=== PATIENT | male | born 1950 | race Caucasian/White ===

== ENCOUNTER → 2017-11-25 07:09 | Outpatient (CLI) | payer MEDICARE, OTHER, SELFPAY ==
[2017-11-25 08:45] LABS: Estimated Glomerular Filt Rate > 60.0 mL/min (>60)
== END ==
PROVIDERS: PCP Internal Medicine; Visit Provider Student in an Organized Health Care Education/Training Program
DX: I71.4 Abdominal aortic aneurysm, without rupture (principal); I72.3 Aneurysm of iliac artery
CPT/HCPCS: 36415; 82565

== ENCOUNTER → 2018-01-26 07:56 | Outpatient (CLI) | payer MEDICARE, OTHER, SELFPAY ==
[2018-01-26 08:35] LABS: Add Manual Diff / Slide Review NO; Basophils Percent Auto 0.7 % (0-2); Eosinophils Percent Auto 3.3 % (2-4); Hemoglobin 15.1 g/dL (13.5-17.5); Lymphocytes Percent Auto 27.3 % (25-40); Mean Corpuscular HGB Conc 34.3 % (30-36); Mean Corpuscular Hemoglobin 32.9 PG (26-34); Monocytes Percent Auto 9.2 % (3-14); Neutrophils Absolute Auto 3000 /uL (3000-5900); Neutrophils Percent Auto 59.5 % (50-75); Platelet Count 185 X10^3/uL (150-400); Red Blood Cell Count 4.59 X10^6/uL (4.5-5.9); Red Cell Distribution Width 13.7 % (11.6-14.8); White Blood Cell Count 5.1 X10^3/uL (4.5-11.0)
[2018-01-26 08:57] LABS: Alanine Aminotransferase 31 IU/L (21-72); Albumin 4.1 g/dL (3.5-5.0); Albumin Globulin Ratio 1.4 (1.0-2.8); Alkaline Phosphatase 75 U/L (38-126); Aspartate Aminotransferase 31 IU/L (17-59); Blood Urea Nitrogen 21 mg/dL (9-20); Carbon Dioxide 31 mmol/L (22-32); Chloride 106 mmol/L (98-107); Cholesterol 177 mg/dL (140-199); Estimated Glomerular Filt Rate > 60.0 mL/min (>60); Globulin 2.9 g/dL (1.7-4.1); Glucose 94 mg/dL (80-110); HDL Cholesterol 46 mg/dL (40-60); HEMOLYSIS < 15 (0-50); LDL Cholesterol Calculated 115 mg/dL (<100); Potassium 4.6 mmol/L (3.4-5.1); Sodium 143 mmol/L (137-145); Triglycerides 82 mg/dL (35-150)
== END ==
PROVIDERS: PCP Internal Medicine; Visit Provider Internal Medicine
DX: Z12.5 Encounter for screening for malignant neoplasm of prostate (principal); E78.00 Pure hypercholesterolemia, unspecified
CPT/HCPCS: 36415; 80053; 80061; 84153; 85025

== ENCOUNTER → 2018-03-27 07:43 | Outpatient (CLI) | payer MEDICARE, OTHER, SELFPAY ==
[2018-03-27 08:38] LABS: Alanine Aminotransferase 28 IU/L (21-72); Aspartate Aminotransferase 29 IU/L (17-59); Cholesterol 136 mg/dL (140-199); HDL Cholesterol 42 mg/dL (40-60); LDL Cholesterol Calculated 82 mg/dL (<100); Triglycerides 59 mg/dL (35-150)
[2018-03-27 09:30] LABS: Hep C Virus Ab w/Reflex Quant NEGATIVE s/c (NEGATIVE)
== END ==
PROVIDERS: PCP Internal Medicine; Visit Provider Internal Medicine
DX: E78.00 Pure hypercholesterolemia, unspecified (principal)
CPT/HCPCS: 36415; 80061; 84450; 84460; 86803

== ENCOUNTER → 2019-03-13 07:57 | Outpatient (CLI) | payer MEDICARE, OTHER, SELFPAY ==
[2019-03-13 09:10] LABS: Alanine Aminotransferase 21 IU/L (<50); Albumin Globulin Ratio 1.4 (1.0-2.8); Alkaline Phosphatase 85 U/L (38-126); Aspartate Aminotransferase 32 IU/L (17-59); Bilirubin Total 1.4 mg/dL (0.2-1.3); Blood Urea Nitrogen 16 mg/dL (9-20); Calcium 9.1 mg/dL (8.4-10.2); Carbon Dioxide 28 mmol/L (22-32); Chloride 106 mmol/L (98-107); Cholesterol 150 mg/dL (140-199); Estimated Glomerular Filt Rate > 60.0 mL/min (>60); Globulin 2.8 g/dL (1.7-4.1); Glucose 99 mg/dL (80-110); HDL Cholesterol 40 mg/dL (40-60); HEMOLYSIS < 15 (0-50); LDL Cholesterol Calculated 97 mg/dL (<100); Potassium 4.6 mmol/L (3.4-5.1); Sodium 140 mmol/L (137-145); Total Protein 6.8 g/dL (6.3-8.2); Triglycerides 66 mg/dL (35-150)
[2019-03-13 09:38] LABS: Prostate Specific Antigen Scrn 1.55 ng/mL (0.1-4.0)
== END ==
PROVIDERS: PCP Internal Medicine; Visit Provider Internal Medicine
DX: Z00.00 Encounter for general adult medical examination without abnormal findings (principal); M15.0 Primary generalized (osteo)arthritis; E78.00 Pure hypercholesterolemia, unspecified; Z12.5 Encounter for screening for malignant neoplasm of prostate
CPT/HCPCS: 36415; 80053; 80061; G0103

== ENCOUNTER → 2019-09-27 07:36 | Outpatient (CLI) | payer MEDICARE, OTHER, SELFPAY ==
[2019-09-27 08:54] LABS: Estimated Glomerular Filt Rate > 60.0 mL/min (>60)
== END ==
PROVIDERS: PCP Internal Medicine; Referring Provider Physician Assistant; Visit Provider Physician Assistant
DX: I72.3 Aneurysm of iliac artery (principal); I71.4 Abdominal aortic aneurysm, without rupture
CPT/HCPCS: 36415; 82565

== ENCOUNTER → 2020-03-18 07:43 | Outpatient (CLI) | payer MEDICARE, OTHER, SELFPAY ==
[2020-03-18 08:54] LABS: Add Manual Diff / Slide Review NO; Basophils Absolute Auto 0 /uL (0-100); Basophils Percent Auto 0.7 % (0-2); Eosinophils Absolute Auto 100 /uL (0-450); Eosinophils Percent Auto 2.8 % (2-4); Hematocrit 42.5 % (41-53); Hemoglobin 14.4 g/dL (13.5-17.5); Lymphocytes Absolute Auto 1200 /uL (1100-4500); Lymphocytes Percent Auto 27.5 % (25-40); Mean Corpuscular HGB Conc 33.9 % (30-36); Mean Corpuscular Volume 97.3 fL (80-100); Monocytes Absolute Auto 400 /uL (0-900); Monocytes Percent Auto 9.1 % (3-14); Neutrophils Absolute Auto 2600 /uL (1500-7000); Neutrophils Percent Auto 59.9 % (50-75); Platelet Count 185 X10^3/uL (150-400); Red Blood Cell Count 4.37 X10^6/uL (4.5-5.9); Red Cell Distribution Width 13.5 % (11.6-14.8); White Blood Cell Count 4.4 X10^3/uL (4.5-11.0)
[2020-03-18 09:27] LABS: Alanine Aminotransferase 25 IU/L (<50); Albumin Globulin Ratio 1.4 (1.0-2.8); Alkaline Phosphatase 70 U/L (38-126); Aspartate Aminotransferase 34 IU/L (17-59); BUN Creatinine Ratio 14.6 (6-22); Bilirubin Total 0.8 mg/dL (0.2-1.3); Blood Urea Nitrogen 14 mg/dL (9-20); Calcium 9.1 mg/dL (8.4-10.2); Carbon Dioxide 31 mmol/L (22-32); Chloride 106 mmol/L (98-107); Cholesterol 164 mg/dL (140-199); Estimated Glomerular Filt Rate > 60.0 mL/min (>60); Globulin 2.8 g/dL (1.7-4.1); Glucose 96 mg/dL (80-110); HDL Cholesterol 47 mg/dL (40-60); HEMOLYSIS < 15 (0-50); LDL Cholesterol Calculated 101 mg/dL (<100); Potassium 4.5 mmol/L (3.4-5.1); Sodium 140 mmol/L (137-145); Total Protein 6.8 g/dL (6.3-8.2); Triglycerides 79 mg/dL (35-150)
[2020-03-18 09:51] LABS: Prostate Specific Antigen Scrn 1.83 ng/mL (0.1-4.0)
== END ==
PROVIDERS: PCP Internal Medicine; Referring Provider Internal Medicine; Visit Provider Internal Medicine
DX: Z00.00 Encounter for general adult medical examination without abnormal findings (principal); E78.00 Pure hypercholesterolemia, unspecified; Z12.5 Encounter for screening for malignant neoplasm of prostate; I71.4 Abdominal aortic aneurysm, without rupture
CPT/HCPCS: 36415; 80053; 80061; 85025; G0103

== ENCOUNTER → 2020-05-15 14:27 | Outpatient (CLI) | payer MEDICARE, OTHER, SELFPAY ==
[2020-05-15] MEDS: COVID-19 VACC #1, MRNA(MOD) 100 MCG/0.5 ML VIAL IM (14:32)
== END ==
PROVIDERS: PCP Internal Medicine; Visit Provider Internal Medicine
DX: Z23 Encounter for immunization (principal)
CPT/HCPCS: 0011A; 91301

== ENCOUNTER → 2020-06-12 14:28 | Outpatient (CLI) | payer MEDICARE, OTHER, SELFPAY ==
[2020-06-12] MEDS: COVID-19 VACC #2, MRNA(MOD) 100 MCG/0.5 ML VIAL IM (14:36)
== END ==
PROVIDERS: PCP Internal Medicine; Visit Provider Internal Medicine
DX: Z23 Encounter for immunization (principal)
CPT/HCPCS: 0012A; 91301

== ENCOUNTER → 2021-11-14 08:16 | Outpatient (CLI) | payer MEDICARE, OTHER, SELFPAY ==
[2021-11-14 09:30] LABS: BUN Creatinine Ratio 15.2 (6-22); Blood Urea Nitrogen 17 mg/dL (9-20); Carbon Dioxide 28 mmol/L (22-32); Chloride 107 mmol/L (98-107); Estimated Glomerular Filt Rate > 60 mL/min (>60); Glucose 92 mg/dL (80-110); HEMOLYSIS < 15 (0-50); Potassium 4.5 mmol/L (3.4-5.1); Sodium 140 mmol/L (137-145)
== END ==
PROVIDERS: PCP Internal Medicine; Visit Provider Student in an Organized Health Care Education/Training Program
DX: I83.11 Varicose veins of right lower extremity with inflammation (principal); I71.4 Abdominal aortic aneurysm, without rupture
CPT/HCPCS: 36415; 80048

== ENCOUNTER → 2022-05-07 11:04 | Outpatient (CLI) | payer MEDICARE, OTHER, SELFPAY ==
[2022-05-07 12:47] LABS: Hematocrit 43.6 % (41-53); Hemoglobin 14.7 g/dL (13.5-17.5); Mean Corpuscular HGB Conc 33.8 % (30-36); Mean Corpuscular Hemoglobin 32.6 PG (26-34); Mean Corpuscular Volume 96.6 fL (80-100); Platelet Count 162 X10^3/uL (150-400); Red Blood Cell Count 4.51 X10^6/uL (4.5-5.9); Red Cell Distribution Width 13.5 % (11.6-14.8)
[2022-05-07 13:34] LABS: Alanine Aminotransferase 22 IU/L (<50); Alkaline Phosphatase 78 U/L (38-126); Aspartate Aminotransferase 30 IU/L (17-59); BUN Creatinine Ratio 19.8 (6-22); Bilirubin Total 1.4 mg/dL (0.2-1.3); Blood Urea Nitrogen 18 mg/dL (9-20); Calcium 8.9 mg/dL (8.4-10.2); Carbon Dioxide 26 mmol/L (22-32); Chloride 104 mmol/L (98-107); Cholesterol 172 mg/dL (140-199); Estimated Glomerular Filt Rate > 60 mL/min (>60); Glucose 86 mg/dL (80-110); HDL Cholesterol 49 mg/dL (40-60); HEMOLYSIS < 15 (0-50); LDL Cholesterol Calculated 108 mg/dL (<100); Potassium 4.2 mmol/L (3.4-5.1); Sodium 140 mmol/L (137-145); Total Protein 7.2 g/dL (6.3-8.2); Triglycerides 75 mg/dL (35-150)
[2022-05-07 13:59] LABS: Prostate Specific Antigen 2.75 ng/mL (0.10-4.00)
[2022-05-07 14:02] LABS: TSH w/ Reflex to FT4 1.41 uIU/mL (0.47-4.68)
[2022-05-07 19:40] LABS: Albumin 4.2 g/dL (3.5-5.0); Albumin Globulin Ratio 1.4 (1.0-2.8)
== END ==
PROVIDERS: PCP Internal Medicine; Referring Provider Internal Medicine; Visit Provider Internal Medicine
DX: E78.2 Mixed hyperlipidemia (principal); N40.1 Benign prostatic hyperplasia with lower urinary tract symptoms; I25.10 Atherosclerotic heart disease of native coronary artery without angina pectoris; K59.01 Slow transit constipation; N13.8 Other obstructive and reflux uropathy
CPT/HCPCS: 36415; 80053; 80061; 84153; 84443; 85027

== ENCOUNTER → 2022-11-24 09:19 | Outpatient (CLI) | payer MEDICARE, OTHER, SELFPAY ==
[2022-11-24 11:12] LABS: Aspartate Aminotransferase 36 IU/L (17-59); Blood Urea Nitrogen 20 mg/dL (9-20); Calcium 8.9 mg/dL (8.4-10.2); Carbon Dioxide 29 mmol/L (22-32); Chloride 104 mmol/L (98-107); Cholesterol 134 mg/dL (140-199); Estimated Glomerular Filt Rate > 60 mL/min (>60); Glucose 93 mg/dL (80-110); HDL Cholesterol 48 mg/dL (40-60); HEMOLYSIS < 15 (0-50); LDL Cholesterol Calculated 70 mg/dL (<100); Potassium 4.3 mmol/L (3.4-5.1); Sodium 140 mmol/L (137-145); Triglycerides 80 mg/dL (35-150)
== END ==
PROVIDERS: PCP Internal Medicine; Referring Provider Internal Medicine; Visit Provider Internal Medicine
DX: E78.2 Mixed hyperlipidemia (principal); I25.10 Atherosclerotic heart disease of native coronary artery without angina pectoris
CPT/HCPCS: 36415; 80048; 80061; 84450

== ENCOUNTER 2022-12-19 06:32 | Emergency (ER) | payer MEDICARE, OTHER, SELFPAY ==
[2022-12-19 06:45] VITALS: BP 145/69; PULSE 72; RESP 18; TEMP 36.8; O2SAT 97; BMI 23.7
--- NOTE | 2022-12-19 07:09 | ED_ITS ---
HPI - Extremity Problem General Chief complaint: Extremity Problem,Nontraumatic Stated complaint: lt thumb injury since Tuesday Time Seen by Provider: 12/19/22 06:55 Source: patient Mode of arrival: Ambulatory History of Present Illness HPI Narrative: 72-year-old male presents for evaluation of left thumb pain and swelling. Patient states that he was gardening when he got a splinter under his nail. He removed the splinter, however over the weekend it has gradually worsened and begun to swell. He has been using warm saltwater soaks without improvement. Pain is worst over the pulp of his thumb. He states that he got a tetanus upda te earlier this year. Related Data Previous Rx's Medication Instructions Recorded rosuvastatin 20 mg tablet 20 mg PO DAILY #90 tabs 05/07/22 valacyclovir 500 mg tablet 500 mg PO BID #14 tabs 11/24/22 doxycycline hyclate 100 mg capsule 100 mg PO BID #14 caps 12/19/22 Allergies Allergy/AdvReac Type Severity Reaction Status Date / Time erythromycin base AdvReac disoriented Verified 11/24/22 08:25 Review of Systems Review of Systems Narrative: CONSTITUTIONAL- Denies: fever, chills, fatigue HEENT- Denies: sore throat, nosebleed, vision changes RESPIRATORY- Denies: shortness of breath, cough, wheezing CARDIAC- Denies: chest pain, edema, orthopnea GI- Denies: abdominal pain, nausea, vomiting, constipation, diarrhea - Denies: frequency, dysuria, hematuria, flank pain MSK-reports: Left thumb pain, left thumb swelling Denies: Joint pain, joint swelling SKIN-reports: Swelling, redness Denies: rash, itching, burn NEUROLOGICAL- Denies: headache, numbness, weakness, dizziness PSYCHIATRIC- Denies: anxiety, depression, suicidal ideation, homicidal ideation Patient History Medical History (Updated 12/19/22 @ 07:11 by Oriana Jacobson MD) Allergic rhinitis Atherosclerotic coronary vascular disease BPH w urinary obs/LUTS Chicken pox Colon polyps (~2018) Cutaneous leishmaniasis Herpes History of colon polyps HSV (herpes simplex virus) anogenital infection Knee pain, left (~2020) Macular edema of left eye (~2015) Measles Mixed hyperlipidemia Mumps Plantar warts Primary osteoarthritis involving multiple joints Slow transit constipation Surgical History Anesthesia History of AAA (abdominal aortic aneurysm) repair (~2018) History of hip replacement (~2006) History of inguinal hernia repair, bilateral (~2008) History of tonsillectomy (~1954) Family History Father Cancer Cholangiocarcinoma Mother Cancer History of heart disease Brother Prostate cancer Social History details: (Yvette Espinal), 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 Smoking Status: Former smoker Exam Initial Vital Signs Initial Vital Signs: Vital Signs Temperature 98.3 F 12/19/22 06:45 Pulse Rate 72 12/19/22 06:45 Respiratory Rate 18 12/19/22 06:45 Blood Pressure 145/69 H 12/19/22 06:45 Pulse Oximetry 97 12/19/22 06:45 Oxygen Delivery Method Room Air 12/19/22 06:45 Const: Well-nourished, Well-developed, appears stated age Eyes: PERRL, EOMI, conjunctiva normal ENT: Atraumatic, dentition normal, mucous membranes moist Cardiac: regular rate, regular rhythm RESP: unlabored, clear bilaterally, no wheezing GI: Atraumatic, soft, nontender, nondistended, no rebound, no guarding MSK: Atraumatic, full range of motion, pulses equal, no flexor tendon sheath tenderness Skin: Warm, Dry, intact, mild erythema and swelling of the pulp of left thumb. Neuro: AO x3, CN II-XII grossly intact, moves all extremities Psych: affect normal, mood normal, not suicidal, not homicidal Course Course Course Narrative: Well-appearing patient with thumb swelling after getting a splinter under his nail bed. There is no foreign body seen underneath the nailbed. He is full range of motion of his thumb, no evidence for flexor tenosynovitis at this time. Patient's pain is most at the pulp of the thumb, however there is no discernible abscess to drain. Take [id number] pain medications as needed. We will give antibiotics for presumed infection. Patient is up-to-date with his tetanus shot. ED return precautions discussed at bedside. Patient expressed understanding of the plan and is in agreement at this time. All questions answered at the time of discharge. Vital Signs Vital signs: Vital Signs - 8 hr 12/19/22 06:45 Temperature 98.3 F Pulse Rate 72 Respiratory Rate 18 Blood Pressure 145/69 H Pulse Oximetry 97 Oxygen Delivery Method Room Air Discharge Plan Departure Patient Disposition: Home Clinical Impression: Cellulitis Instructions: DI for Cellulitis -- Adult Prescriptions: New doxycycline hyclate 100 mg capsule 100 mg PO BID Qty: 14 0RF No Action rosuvastatin 20 mg tablet 20 mg PO DAILY Qty: 90 3RF valacyclovir 500 mg tablet 500 mg PO BID Qty: 14 5RF Referrals: Gray Richards MD [Primary Care Provider] - Stand Alone Forms: Patient Portal/API
== END 2022-12-19 07:20 | disposition home or self-care (01) ==
PROVIDERS: Emergency Provider Emergency Medicine; PCP Internal Medicine
DX: L03.012 Cellulitis of left finger (principal)
CPT/HCPCS: 99281

== ENCOUNTER → 2023-01-03 15:00 | Outpatient (CLI) | payer MEDICARE, OTHER, SELFPAY ==
--- NOTE | 2023-01-03 15:01 | DI.RAD.S_ITS ---
PROCEDURE: XR FINGER LT MIN 2V INDICATIONS: thumb pain TECHNIQUE: AP hand, 2 views of the 1st finger(s) acquired. COMPARISON: None. FINDINGS: Bones: No fractures or dislocations. No suspicious bony lesions. Mild 1st CMC arthritic narrowing. Minimal to mild scattered IP narrowing. No distinct erosions. Soft tissues: No suspicious soft tissue calcifications. IMPRESSION: Overall minimal to mild arthritic changes above. Dictated by: Gisselle Fabian M.D. on 01/03/2023 at 17:24 Approved by: Gisselle Fabian M.D. on 01/03/2023 at 17:24
== END ==
PROVIDERS: PCP Internal Medicine; Referring Provider Internal Medicine; Visit Provider Internal Medicine
DX: L03.90 Cellulitis, unspecified (principal)
CPT/HCPCS: 73140

== ENCOUNTER → 2023-05-10 10:37 | Outpatient (CLI) | payer MEDICARE, OTHER, SELFPAY ==
--- NOTE | 2023-05-10 10:39 | DI.RAD.S_ITS ---
PROCEDURE: XR HIP W PEL IF DONE LT 2V INDICATIONS: left hip pain TECHNIQUE: 2 views of the hip were acquired. COMPARISON: None. FINDINGS: Bones: No fractures or dislocations. No suspicious bony lesions. The visualized pelvic ring appears intact. Well-aligned, intact right total hip arthroplasty without hardware complication. Joint space narrowing with osteophytosis and subchondral cystic change of the left hip. Soft tissues: No suspicious soft tissue calcifications or masses. Vascular stents. Hernia mesh along the pelvic ring. IMPRESSION: Moderate to severe left hip osteoarthritis. Kellgren-Jose Luis Grade 3. No acute bony abnormality. Dictated by: Guzman Owens M.D. on 05/10/2023 at 13:09 Approved by: Guzman Owens M.D. on 05/10/2023 at 13:10
[2023-05-10 11:56] LABS: Aspartate Aminotransferase 37 IU/L (17-59); BUN Creatinine Ratio 20.2 (6-22); Blood Urea Nitrogen 17 mg/dL (9-20); Carbon Dioxide 27 mmol/L (22-32); Chloride 105 mmol/L (98-107); Cholesterol 139 mg/dL (140-199); Estimated Glomerular Filt Rate > 60 mL/min (>60); Glucose 94 mg/dL (80-110); HDL Cholesterol 44 mg/dL (40-60); HEMOLYSIS < 15 (0-50); LDL Cholesterol Calculated 80 mg/dL (<100); Potassium 4.1 mmol/L (3.4-5.1); Sodium 139 mmol/L (137-145); Triglycerides 75 mg/dL (35-150)
[2023-05-10 12:22] LABS: Prostate Specific Antigen 4.07 ng/mL (0.10-4.00)
== END ==
PROVIDERS: PCP Internal Medicine; Referring Provider Internal Medicine; Visit Provider Internal Medicine
DX: E78.2 Mixed hyperlipidemia (principal); N40.1 Benign prostatic hyperplasia with lower urinary tract symptoms; M16.12 Unilateral primary osteoarthritis, left hip; N13.8 Other obstructive and reflux uropathy
CPT/HCPCS: 36415; 73502; 80048; 80061; 84153; 84450

== ENCOUNTER 2023-07-11 07:42 | Day surgery (SDC) | payer MEDICARE, OTHER, SELFPAY ==
[2023-07-11 07:58] VITALS: BP 119/74; PULSE 67; RESP 16; TEMP 36.4; O2SAT 100
[2023-07-11] MEDS: LACTATED RINGERS 1,000 ML 42 ML IV (08:04)
--- NOTE | 2023-07-11 08:56 | PM.HP.1 ---
History of Present Illness History of Present Illness Date Patient Seen: 07/11/23 Time Patient Seen: 08:56 Chief complaint: Colonoscopy Narrative: Oj is a 72 year old man here for a colonoscopy. His last one was [address] Baca at [facility] and polyps were removed. No family history of colon cancer. [facility] Medical History (Updated 05/12/23 @ 13:30 by Gray Richards MD) Elevated PSA HSV (herpes simplex virus) anogenital infection Primary osteoarthritis involving multiple joints BPH w urinary obs/LUTS Atherosclerotic coronary vascular disease Cutaneous leishmaniasis Plantar warts Knee pain, left (~2020) Mumps Measles Herpes Chicken pox Macular edema of left eye (~2015) Allergic rhinitis History of colon polyps Mixed hyperlipidemia Surgical History Anesthesia History of tonsillectomy (~1953) History of inguinal hernia repair, bilateral (~2008) History of hip replacement (~2006) History of AAA (abdominal aortic aneurysm) repair (~2017) Family History Father Cancer Cholangiocarcinoma Mother Cancer History of heart disease Brother Prostate cancer Social History details: (Yvette Espinla), 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 alcohol intake: current Meds Home Medications and Allergies Home Medications Medication Instructions Recorded Confirmed Type rosuvastatin 20 mg tablet 20 mg PO DAILY #90 tabs 05/10/23 07/11/23 Rx Allergies Allergy/AdvReac Type Severity Reaction Status Date / Time erythromycin base AdvReac disoriented Verified 05/10/23 07:34 Exam Vital Signs (past 8 hours): - 07/11/23 07:58 Temperature 97.6 F Pulse Rate 67 Respiratory Rate 16 Blood Pressure 119/74 Pulse Oximetry 100 Oxygen Delivery Method Room Air Oxygen Delivery Method Room Air Const General: healthy appearing Assessment & Plan Assessment and plan (1) History of colon polyps: Status: Acute Plan We reviewed the risks and benefits of colonoscopy for history of polyps and he would like to proceed.
[2023-07-11 09:36] VITALS: BP 94/57; PULSE 70; RESP 16; TEMP 36.7; O2SAT 97
--- NOTE | 2023-07-11 09:37 | PM.OP.COLON ---
Operative Date/Time/Diagnoses Date of procedure: 07/11/23 Time of procedure: 09:37 Pre-op diagnosis: History of polyps Post-op diagnosis: same Procedure & Clinicians Study performed: Colonoscopy Same procedure as scheduled: Yes Surgeon: Charlie Heath Procedure Notes Procedure in detail: Surgeon: Charlie Heath MD Anesthesia: Nuris Bourgeois CRNA Procedure: The patient was brought to the endoscopy suite, placed in left lateral decubitus position. The patient was connected to monitoring devices. A time-out was performed. Sedation was administered. Once the patient was adequately sedated, a digital rectal exam was performed and was normal. The scope was then inserted and advanced to the cecum where the appendiceal orifice was identified and photographed. The scope was then slowly withdrawn over greater than 6 minutes. The mucosa was thoroughly inspected. The prep was fair but after copious irrigation was able to be cleared. No polyps were found. The scope was retroflexed in the rectum. Mild internal hemorrhoids were noted. The scope was straightened and removed. The patient was awakened and brought to recovery. Scope withdrawal time: 23 minutes Sedation time: 30 minutes EBL: 0 Findings: Internal hemorrhoids Post-procedure Disposition: PACU
[2023-07-11 09:40] VITALS: BP 88/58; PULSE 68; RESP 16; O2SAT 97
[2023-07-11 09:45] VITALS: BP 98/61; PULSE 64; RESP 13; O2SAT 97
[2023-07-11 09:46] VITALS: BP 100/66; PULSE 66; RESP 14; O2SAT 97
[2023-07-11 10:01] VITALS: BP 107/62; PULSE 52; RESP 18; TEMP 36.9; O2SAT 96
== END 2023-07-11 10:07 | disposition home or self-care (01) ==
PROVIDERS: Surgery; PCP Internal Medicine; Referring Provider Internal Medicine Gastroenterology; Visit Provider Internal Medicine Gastroenterology
PROC: 0DJD8ZZ Inspection of Lower Intestinal Tract, Via Natural or Artificial Opening Endoscopic (ICD-10-PCS; CPT 45378; principal; 2023-07-11 08:30)
DX: Z12.11 Encounter for screening for malignant neoplasm of colon (principal); Z86.010 Personal history of colon polyps; K64.8 Other hemorrhoids
CPT/HCPCS: G0105; J2704

== ENCOUNTER → 2023-08-03 06:53 | Outpatient (CLI) | payer MEDICARE, OTHER, SELFPAY ==
[2023-08-05 09:56] LABS: PSA Free % 14.1 % (.); PSA, Total 3.2 ng/mL (0.0-4.0)
== END ==
PROVIDERS: PCP Internal Medicine; Referring Provider Internal Medicine; Visit Provider Internal Medicine
DX: R97.20 Elevated prostate specific antigen [PSA] (principal)
CPT/HCPCS: 36415; 84153; 84154

== ENCOUNTER → 2024-05-15 10:55 | Outpatient (CLI) | payer MEDICARE, OTHER, SELFPAY ==
[2024-05-15 11:57] LABS: Aspartate Aminotransferase 33 IU/L (17-59); BUN Creatinine Ratio 16.7 (6-22); Blood Urea Nitrogen 15 mg/dL (9-20); Calcium 9.2 mg/dL (8.4-10.2); Carbon Dioxide 27 mmol/L (22-32); Chloride 106 mmol/L (98-107); Cholesterol 139 mg/dL (140-199); Estimated Glomerular Filt Rate > 60 mL/min (>60); Glucose 89 mg/dL (80-110); HDL Cholesterol 47 mg/dL (40-60); HEMOLYSIS < 15 (0-50); LDL Cholesterol Calculated 73 mg/dL (<100); Potassium 4.1 mmol/L (3.4-5.1); Sodium 139 mmol/L (137-145); Triglycerides 96 mg/dL (35-150)
[2024-05-15 12:27] LABS: Prostate Specific Antigen 4.99 ng/mL (0.10-4.00)
== END ==
PROVIDERS: PCP Internal Medicine; Referring Provider Internal Medicine; Visit Provider Internal Medicine
DX: E78.2 Mixed hyperlipidemia (principal); N40.1 Benign prostatic hyperplasia with lower urinary tract symptoms; N13.8 Other obstructive and reflux uropathy; I25.10 Atherosclerotic heart disease of native coronary artery without angina pectoris
CPT/HCPCS: 36415; 80048; 80061; 84153; 84450

== ENCOUNTER 2024-07-31 14:55 | Emergency (ER) | payer MEDICARE, OTHER, SELFPAY ==
[2024-07-31 15:15] VITALS: BP 119/58; PULSE 69; RESP 15; O2SAT 95; BMI 23.7
[2024-07-31 17:10] VITALS: BP 115/61; PULSE 67; RESP 14; O2SAT 97
--- NOTE | 2024-07-31 18:55 | ED.UPPEXIN ---
HPI - Extremity Injury (Upper) <Nicholas Jeffrey PA-C - Last Filed: 07/31/24 19:00> General Chief Complaint: Extremity Injury, Upper Stated Complaint: thumb laceration Time Seen by Provider: 07/31/24 15:37 Source: patient Mode of arrival: Ambulatory History of Present Illness HPI narrative: 74-year-old male presents to the ED with a left thumb laceration sustained just prior to arrival. Patient was using a branch cutter, accidentally injuring his left thumb. Patient endorses pain at the site of the wound, denies numbness, tingling, weakness. Is able to move all extremities normally. Tetanus is up-to-date. Related Data Previous Rx's Medication Instructions Recorded rosuvastatin 20 mg tablet 20 mg PO DAILY #90 tabs 05/15/24 valacyclovir 500 mg tablet 500 mg PO BID #14 tabs 05/15/24 Allergies Allergy/AdvReac Type Severity Reaction Status Date / Time erythromycin base AdvReac disoriented Verified 05/15/24 09:59 Review of Systems <Nicholas Jeffrey PA-C - Last Filed: 07/31/24 19:00> Constitutional Constitutional: Denies chills, Denies fatigue, Denies fever(s), Denies frequent falls, Denies lethargy and Denies weakness Eyes Eyes: Denies change in vision, Denies eye discharge, Denies irritation and Denies loss of vision ENT Ears, Nose, Mouth, and Throat: Denies change in voice, Denies dizziness, Denies neck pain, Denies sore throat and Denies throat swelling Cardiovascular Cardiovascular: Denies chest pain, Denies irregular heart rhythm, Denies lightheadedness, Denies palpitations, Denies dyspnea, Denies dyspnea on exertion and Denies orthopnea Respiratory Respiratory: Denies cough, Denies dyspnea, Denies dyspnea on exertion and Denies wheezing Gastrointestinal Gastrointestinal: Denies abdominal pain, Denies change in bowel habits, Denies diarrhea, Denies nausea and Denies vomiting Musculoskeletal Musculoskeletal: Denies neck pain and Denies numbness Integumentary/Breasts Skin/Breast: Denies pruritus, Denies erythema, Denies rash and Reports wounds Neurologic Neurologic: Denies behavioral changes, Denies confusion, Denies dizziness, Denies frequent falls, Denies loss of vision, Denies numbness and Denies weakness Psychiatric Psychiatric: Denies anxiety, Denies behavioral changes, Denies confusion, Denies depression, Denies homicidal ideation and Denies suicidal ideation Endocrine Endocrine: Denies fatigue, Denies flushing and Denies palpitations Hematologic/Lymphatic Hematologic/Lymphatic: Denies easy bruising Allergic/Immunologic Allergic/Immunologic: Denies urticaria, Denies throat swelling and Denies wheezing Patient History <Nicholas Jeffrey PA-C - Last Filed: 07/31/24 19:00> Medical History Chronic low back pain Elevated PSA HSV (herpes simplex virus) anogenital infection Primary osteoarthritis involving multiple joints BPH w urinary obs/LUTS Atherosclerotic coronary vascular disease Cutaneous leishmaniasis Plantar warts Knee pain, left (~2020) Mumps Measles Herpes Chicken pox Macular edema of left eye (~2015) Allergic rhinitis History of colon polyps Mixed hyperlipidemia Surgical History Anesthesia History of tonsillectomy (~1953) History of inguinal hernia repair, bilateral (~2008) History of hip replacement (~2006) History of AAA (abdominal aortic aneurysm) repair (~2017) Family History Father Cancer Cholangiocarcinoma Mother Cancer History of heart disease Brother Prostate cancer Social History details: (Yvette Espinal), 1 daughter, 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 alcohol intake: current Smoking Status: Former smoker alcohol intake frequency: 0-2 drinks per day Alcohol type: wine Exam <Nicholas Jeffrey PA-C - Last Filed: 07/31/24 19:00> Narrative Exam Narrative: Const General:?cooperative, healthy appearing and comfortable [facility] Head:?normal to inspection Ears:?hearing grossly normal bilaterally Nose:?external nose normal Face and sinus:?normal facial exam and sinuses nontender Mouth:?oral mucosae normal Throat:?posterior oropharynx normal Eyes General:?appearance normal, both eyes and all related structures Neck Neck:?normal visual inspection and no lymphadenopathy noted Resp Effort & Inspection:?normal respiratory effort Auscultation:?clear to auscultation bilaterally Cardio Rate:?regular rate Rhythm:?regular rhythm Integumentary There is a 1.5 cm linear laceration to the dorsal aspect of the left wrist. There is full range of motion. Strength and sensation is intact. Patient is neurovascularly intact. Bleeding is controlled with pressure. No internal structures visualized on exam. Neuro General:?patient alert, patient awake and patient oriented x3 Initial Vital Signs Initial Vital Signs: Vital Signs Pulse Rate 69 07/31/24 15:15 Respiratory Rate 15 07/31/24 15:15 Blood Pressure 119/58 L 07/31/24 15:15 Pulse Oximetry 95 07/31/24 15:15 Oxygen Delivery Method Room Air 07/31/24 15:15 <DO Kev Hinojosa Last Filed: 07/31/24 19:13> Initial Vital Signs Initial Vital Signs: Vital Signs Pulse Rate 69 07/31/24 15:15 Respiratory Rate 15 07/31/24 15:15 Blood Pressure 119/58 L 07/31/24 15:15 Pulse Oximetry 95 07/31/24 15:15 Oxygen Delivery Method Room Air 07/31/24 15:15 Procedures <MERNA Gaitan Last Filed: 07/31/24 19:00> Laceration Repair Laceration 1: Site: hand Side (If applicable): left Size (cm): 1.5 Description: linear Depth: simple, single layer Local Anesthetic: lidocaine 1% Amount of anesthesia used (mL): 1 Pre-repair: wound explored, irrigated extensively and deep structures intact Skin layer closed with: nylon Skin layer suture size: 5-0 Number of sutures: 3 Course <MERNA Gaitan Last Filed: 07/31/24 19:00> Orders Ordered: Discontinued Medications Bacitracin (Bacitracin Oint 0.9 Gm Pckt) 1 applic TOP NOW ONE Stop: 07/31/24 16:56 Vital Signs Vital signs: Vital Signs - 8 hr 07/31/24 15:15 07/31/24 17:10 Pulse Rate 69 67 Respiratory Rate 15 14 Blood Pressure 119/58 L 115/61 Pulse Oximetry 95 97 Oxygen Delivery Method Room Air Room Air <DO Kev Hinojosa Last Filed: 07/31/24 19:13> Orders Ordered: Discontinued Medications Bacitracin (Bacitracin Oint 0.9 Gm Pckt) 1 applic TOP NOW ONE Stop: 07/31/24 16:56 Vital Signs Vital signs: Vital Signs - 8 hr 07/31/24 15:15 07/31/24 17:10 Pulse Rate 69 67 Respiratory Rate 15 14 Blood Pressure 119/58 L 115/61 Pulse Oximetry 95 97 Oxygen Delivery Method Room Air Room Air MDM - Extremity Injury (Upper) <Nicholas Jeffrey PA-C - Last Filed: 07/31/24 19:00> MDM Narrative Medical decision making narrative: 74-year-old male presents to the ED with a left thumb laceration sustained just prior to arrival. Laceration was repaired with 3 sutures. Wound care, signs of infection, suture removal discussed with patient. ED return precautions discussed with patient. Patient verbalized understanding. Medical records reviewed: Yes Discharge Plan Departure Patient Disposition: Home Clinical Impression: Laceration Instructions: DI for Laceration Repair Activity Restrictions/Additional Instructions: You were evaluated in the emergency department for a thumb injury. Your laceration was repaired with 3 sutures. The sutures will need to be removed in 7-10 days. You may return to the ED, go to a walk-in clinic, or your PCP for suture removal. Please keep the wound clean and dry for the 1st 24 hours, following which you may wash gently with soap and water. Try to keep the thumb stright with a splint to avoid disrupting the sutures. You may apply Bacitracin which is over the counter. Please watch for signs of infection including worsening redness, pain, discharge, swelling, warmth. Return to the ED if you note any signs of infection. Prescriptions: No Action rosuvastatin 20 mg tablet 20 mg PO DAILY Qty: 90 3RF valacyclovir 500 mg tablet 500 mg PO BID Qty: 14 5RF Referrals: Gray Richards MD [Primary Care Provider] - Stand Alone Forms: Patient Portal/API/Survey ED Sign-out <Oriana Cruz DO - Last Filed: 07/31/24 19:13> Cosign ED Attending Cosignature Attestation: I was immediately available in the department for consultation.
== END 2024-07-31 17:12 | disposition home or self-care (01) ==
PROVIDERS: Emergency Provider Student in an Organized Health Care Education/Training Program; PCP Internal Medicine
DX: S61.012A Laceration without foreign body of left thumb without damage to nail, initial encounter (principal); W27.8XXA Contact with other nonpowered hand tool, initial encounter
CPT/HCPCS: 12001; 99282; 99283